=== PATIENT | female | born 1940 | race Two or more races ===

== ENCOUNTER 2021-05-24 12:28 | Emergency (ER) | payer OTHER ==
[~2021-05-24] VITALS: Ht 160 cm; Wt 81.6 kg
[2021-05-24] MEDS ORDERED: MOTRIN IB200 M1 PO (12:45)
== END 2021-05-24 14:28 | disposition home or self-care (01) ==
LOC: ER 12:28
DX: M54.5 Low back pain (principal); F06.4 Anxiety disorder due to known physiological condition